=== PATIENT | female | born 1945 | race Caucasian/White ===

== ENCOUNTER 2018-08-03 02:49 | Outpatient (CLI) | payer MEDICARE, SELFPAY ==
[2018-08-03 11:36] LABS: ALT 26 U/L (12-78); AST 24 U/L (15-37); Albumin 3.8 g/dL (3.4-5.0); Alkaline Phosphatase 90 U/L (46-116); Anion Gap 10.9 mmol/L (3-11); BUN 17 mg/dL (7-18); Bilirubin, Total 0.5 mg/dL (0.2-1.0); CO2 27.1 mmol/L (21.0-32.0); CREATININE 0.79 mg/dL (0.55-1.02); Calcium 9.7 mg/dL (8.5-10.1); Chloride 104 mmol/L (98-107); Glucose 83 mg/dL (70-100); Potassium 3.8 mmol/L (3.5-5.1); Sodium 142 mmol/L (136-145); TSH (W/Ref FT4) 5.28 uIU/mL (0.358-3.74); Total Protein 6.7 g/dL (6.4-8.2)
[2018-08-03 12:02] LABS: FREE T4 0.97 ng/dL (0.76-1.46)
== END 2018-08-03 03:09 ==
DX: D64.9 Anemia, unspecified (principal); I10 Essential (primary) hypertension; R94.6 Abnormal results of thyroid function studies; F32.9 Major depressive disorder, single episode, unspecified
CPT/HCPCS: 36415; 80053; 84439; 84443

== ENCOUNTER 2019-05-12 14:45 | Emergency (ER) | payer MEDICARE, SELFPAY ==
[2019-05-12 14:51] VITALS: BP 161/78; PULSE 89; RESP 16; TEMP 36.3; O2SAT 98
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
--- NOTE | 2019-05-12 16:23 | DI.CT_ITS ---
SYMPTOM/DIAGNOSIS: TRAUMA NONCONTRAST HEAD CT: No priors. There is cerebral atrophy and small vessel ischemic disease consistent with the patient's age. No evidence of an acute intracranial hemorrhage, mass effect or midline shift is seen. The ventricles are intact. The basilar cisterns are patent. There is mild mucosal thickening in the left maxillary sinus. No fluid levels are seen. The mastoid air cells are well pneumatized. The calvarium is intact. IMPRESSION: No acute intracranial process. CERVICAL SPINE CT: Multiple contiguous axial images of the cervical spine were obtained. Sagittal and coronal reformatted images were evaluated on the Siemens work station. There are no priors for comparison. No acute fractures or subluxations are seen. There is minimal anterolisthesis of C 4 on C 5. This is likely degenerative. There are degenerative changes present throughout the cervical spine but no significant central spinal canal stenosis. The prevertebral soft tissues are unremarkable. IMPRESSION: No acute fracture or subluxation in the cervical spine.
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
== END 2019-05-12 17:20 | disposition home or self-care (01) ==
PROVIDERS: Emergency Provider Physician Assistant; PCP Nurse Practitioner Family
DX: M54.2 Cervicalgia (principal); V43.52XA Car driver injured in collision with other type car in traffic accident, initial encounter; I10 Essential (primary) hypertension
CPT/HCPCS: 99284; 70450; 72125; L0172

== ENCOUNTER 2019-09-23 02:19 | Outpatient (CLI) | payer MEDICARE, SELFPAY ==
--- NOTE | 2019-09-23 15:36 | DI.DEXA_ITS ---
EXAM: XR DEXA BONE DENSITY W/WO WILLIAM INDICATION: Postmenopausal state asymptomatic, Z78.0. COMPARISON: 2009 TECHNIQUE: 2D digital imaging was performed. FINDINGS: The WILLIAM image shows accentuation of the normal thoracic kyphosis. The vertebral bodies are not well profiled. No gross compression fractures are seen. A scoliosis is noted in the lumbar spine. The b one mineral density measurements of the lumbar spine correspond to a total T-score of -2.6, in the os teoporotic range. This represents a 10.5 percent decrease in bone density compared with 2009. The b one mineral density measurements of the left hip correspond to a total T-score of -2.2 and a femoral neck T-score of -2.8, in the osteoporotic range. This is a 17.8 percent decrease in total bone densi ty of the hip. The bone mineral density measurements of the left forearm correspond to a T-score of the distal third of -3.2, in the osteoporotic range. IMPRESSION: Osteoporosis of the lumbar spine, left hip and left forearm with significant decrease in bone density when compared with 2009.
== END 2019-09-23 02:39 ==
PROVIDERS: PCP Nurse Practitioner Family; Visit Provider Nurse Practitioner Family
DX: M81.0 Age-related osteoporosis without current pathological fracture (principal); Z78.0 Asymptomatic menopausal state
CPT/HCPCS: 77080

== ENCOUNTER 2019-10-01 02:22 | Outpatient (CLI) | payer MEDICARE, SELFPAY ==
[2019-10-01 11:46] LABS: HCT 36.4 % (36.0-46.0); HGB 11.5 g/dL (12.0-15.5); Mean Corp. HGB Concentration 31.6 g/dL (32.0-36.0); Mean Corpuscular Hemoglobin 29.1 pg (27.0-33.0); Mean Corpuscular Volume 92.2 fL (80-95); Mean Platelet Volume 12.9 fL (8.0-11.0); Platelet Count 210 x1000/uL (130-400); RBC 3.95 m/cumm (4.00-5.20); RBC Distribution Width 12.7 % (11.7-14.6)
[2019-10-01 12:08] LABS: Hemoglobin A1C 5.7 % (4.5-6.2)
[2019-10-01 12:26] LABS: ALT 21 U/L (14-59); AST 20 U/L (15-37); Albumin 3.7 g/dL (3.4-5.0); Alkaline Phosphatase 88 U/L (46-116); Anion Gap 10.4 mmol/L (3-11); CO2 26.6 mmol/L (21.0-32.0); CREATININE 0.89 mg/dL (0.55-1.02); Calcium 9.3 mg/dL (8.5-10.1); Calculated LDL 117 mg/dL; Chloride 105 mmol/L (98-107); Cholesterol 224 mg/dL (<200); Glucose 107 mg/dL (74-106); HDL Cholesterol 83 mg/dL (40-60); Potassium 3.8 mmol/L (3.5-5.1); Sodium 142 mmol/L (136-145); TSH 5.54 uIU/mL (0.36-3.74); Total Protein 6.5 g/dL (6.4-8.2); Triglyceride 120 mg/dL (<150)
[2019-10-01 12:58] LABS: BUN 20 mg/dL (7-18); Bilirubin, Total 0.4 mg/dL (0.2-1.0)
[2019-10-01 13:17] LABS: FREE T4 0.96 ng/dL (0.76-1.46)
[2019-10-02 12:05] LABS: Thyroglobulin Antibody <15.0 U/mL (<=60); Thyroperoxidase Antibody 97 U/mL (<=60)
[2019-10-03 05:34] LABS: Vitamin D 25 Total 31.9 ng/ml (30-100)
== END 2019-10-01 02:42 ==
PROVIDERS: PCP Nurse Practitioner Family; Visit Provider Nurse Practitioner Family
DX: I10 Essential (primary) hypertension (principal); D64.9 Anemia, unspecified; E03.9 Hypothyroidism, unspecified; R73.09 Other abnormal glucose; M85.80 Other specified disorders of bone density and structure, unspecified site
CPT/HCPCS: 36415; 80053; 80061; 82306; 85027; 86376; 83036; 84439; 84443

== ENCOUNTER 2019-10-08 01:10 | Outpatient (CLI) | payer MEDICARE, SELFPAY ==
--- NOTE | 2019-10-08 12:02 | DI.MAMMO_ITS ---
EXAM: MAMMO SCREENING CLINICAL HISTORY: screening, Z12.39. TECHNIQUE: Full field digital CC and MLO mammographic images were obtained with 3D tomosynthesis and utilizing computer aided detection (CAD). COMPARISON: . 2009 to 2016. FINDINGS: Breast density: Breast Density - Category B - Scattered areas of fibroglandular density Masses/Architectural Distortion: None seen. Microcalcifications: No suspicious pleomorphic-type calcifications are seen. Skin Thickening/Nipple Retraction: None. Axilla: Unremarkable. The previously noted bilateral subpectoral breast implants have been removed. IMPRESSION: 1. BI-RADS category 1, negative. No significant interval change with no specific features of maligna ncy noted. 2. Unless there is more urgent need, screening mammography is recommended, as per [employer] guidelines. BI-RADS Cat 1 - Negative Breast Density - Category B - Scattered areas of fibroglandular density A negative radiographic report should not delay biopsy if a dominant or clinically suspicious mass is present. Up to ten percent of cancers are not identified on mammography. A negative report may reinforce clinical impression. Adenosis and dense breasts may obscure an underlying neoplasm. False positive reports average 6 to 10%. Patient will receive a letter notifying them of these results.
== END 2019-10-08 01:30 ==
PROVIDERS: PCP Nurse Practitioner Family; Visit Provider Nurse Practitioner Family
DX: Z12.31 Encounter for screening mammogram for malignant neoplasm of breast (principal)
CPT/HCPCS: 77063; 77067

== ENCOUNTER 2020-08-20 15:49 | Outpatient (REF) | payer MEDICARE, SELFPAY ==
[2020-08-20 20:45] LABS: Anion Gap 8.8 mmol/L (3-11); BUN 21 mg/dL (7-18); CO2 26.2 mmol/L (21.0-32.0); CREATININE 0.73 mg/dL (0.55-1.02); Calcium 9.4 mg/dL (8.5-10.1); Chloride 104 mmol/L (98-107); FREE T4 1.01 ng/dL (0.76-1.46); Glucose 91 mg/dL (74-106); Potassium 3.7 mmol/L (3.5-5.1); Sodium 139 mmol/L (136-145); TSH 4.13 uIU/mL (0.36-3.74)
[2020-08-20 20:47] LABS: Hemoglobin A1C 5.2 % (<5.7)
== END 2020-08-20 16:09 ==
LOC: LBN 15:49
PROVIDERS: PCP Nurse Practitioner Family; Visit Provider Nurse Practitioner Family
DX: E03.9 Hypothyroidism, unspecified (principal); R73.03 Prediabetes; I10 Essential (primary) hypertension
CPT/HCPCS: 80048; 83036; 84439; 84443

== ENCOUNTER 2020-09-02 01:34 | Outpatient (RCR) | payer MEDICARE, SELFPAY ==
[2020-09-02] MEDS: Normal Saline Flush 10 ML SYR IVP (14:01)
== END 2020-09-28 23:59 | disposition home or self-care (01) ==
LOC: INF 01:34
PROVIDERS: PCP Nurse Practitioner Family; Visit Provider Family Medicine
DX: M81.0 Age-related osteoporosis without current pathological fracture (principal)
CPT/HCPCS: 96365; J3489

== ENCOUNTER 2020-10-09 02:13 | Outpatient (CLI) | payer MEDICARE, SELFPAY ==
--- NOTE | 2020-10-09 10:00 | DI.MAMMO_ITS ---
EXAM: MAMMO SCREENING CLINICAL HISTORY: screening,Z12.39 TECHNIQUE: Mammograms were interpreted according to the usual protocol including computer analysis w [employer] CAD system, tomosynthesis and C-view imaging. COMPARISON: 2010 through 2018 FINDINGS: The breasts are composed of scattered fibroglandular densities, Breast Density category B. No suspicious masses or suspicious microcalcifications are seen. There is a stable small benign-appe aring nodule in the subareolar region of the left breast. Vascular calcifications are incidentally n oted. No skin thickening or abnormal axillary lymph nodes are seen. There has been no significant change from prior exams. IMPRESSION: BI-RADS Category 2 - Benign Findings Yearly screening mammography is recommended. Breast Density - Category B, scattered fibroglandular densities. A negative radiographic report should not delay biopsy if a dominant or clinically suspicious mass is present. Up to ten percent of cancers are not identified on mammography. A negative report may reinforce clinical impression. Adenosis and dense breasts may obscure an underlying neoplasm. False positive reports average 6 to 10%. Patient will receive a letter notifying them of these results.
== END 2020-10-09 02:33 ==
PROVIDERS: PCP Nurse Practitioner Family; Visit Provider Nurse Practitioner Family
DX: Z12.31 Encounter for screening mammogram for malignant neoplasm of breast (principal); R92.1 Mammographic calcification found on diagnostic imaging of breast
CPT/HCPCS: 77063; 77067

== ENCOUNTER 2021-08-24 01:42 | Outpatient (CLI) | payer MEDICARE, OTHER, SELFPAY ==
[2021-08-24 12:44] LABS: Anion Gap 9.6 mmol/L (3-11); BUN 16 mg/dL (7-18); CO2 28.4 mmol/L (21.0-32.0); CREATININE 0.9 mg/dL (0.55-1.02); Calcium 9.2 mg/dL (8.5-10.1); Calculated LDL 125 mg/dL (<100); Chloride 104 mmol/L (98-107); Cholesterol 235 mg/dL (<200); Glucose 83 mg/dL (74-106); HDL Cholesterol 88 mg/dL (40-60); Potassium 3.7 mmol/L (3.5-5.1); Sodium 142 mmol/L (136-145); Triglyceride 113 mg/dL (<150)
== END 2021-08-24 01:43 | disposition home or self-care (01) ==
PROVIDERS: PCP Nurse Practitioner Family; Visit Provider Nurse Practitioner Family
DX: E78.5 Hyperlipidemia, unspecified (principal); I10 Essential (primary) hypertension
CPT/HCPCS: 36415; 80048; 80061

== ENCOUNTER 2021-09-08 01:18 | Outpatient (RCR) | payer MEDICARE, OTHER, SELFPAY ==
[2021-09-08] MEDS: Normal Saline Flush 10 ML SYR IVP (13:55)
== END 2021-09-28 23:59 | disposition home or self-care (01) ==
LOC: INF 01:18
PROVIDERS: PCP Nurse Practitioner Family; Visit Provider Family Medicine
DX: M81.0 Age-related osteoporosis without current pathological fracture (principal)
CPT/HCPCS: 96365; J3489

== ENCOUNTER 2021-09-17 15:07 | Outpatient (REF) | payer MEDICARE, SELFPAY ==
[2021-09-19 21:00] LABS: COVID-19 RT-PCR UVMMC Result Positive (Negative)
== END 2021-09-17 15:08 | disposition home or self-care (01) ==
LOC: LBN 15:07
PROVIDERS: PCP Nurse Practitioner Family; Visit Provider Family Medicine
DX: Z20.822 Contact with and (suspected) exposure to COVID-19 (principal)
CPT/HCPCS: U0003

== ENCOUNTER 2021-11-25 02:39 | Outpatient (CLI) | payer MEDICARE, SELFPAY ==
--- NOTE | 2021-11-25 08:15 | DI.MAMMO_ITS ---
Exam(s) MAMMO SCREENING EXAM: MAMMO SCREENING CLINICAL HISTORY: screening,Z12.39 TECHNIQUE: Bilateral full field digital CC and MLO mammographic images were obtained with 3D tomosyn thesis and utilizing computer aided detection (CAD). COMPARISON: Available for comparison. FINDINGS: Masses/Architectural Distortion: None seen. There is a stable subareolar nodule in the left breast. Microcalcifications: No suspicious pleomorphic-type are seen. Skin Thickening/Nipple Retraction: None. IMPRESSION: 1. No significant interval change with no specific features of malignancy noted. 2. Unless there is more urgent need, screening mammography is recommended, as per [employer] guidelines. BI-RADS Category 2 - Benign Findings Breast Density - Category B - Scattered areas of fibroglandular density Breast density category C or D implies that the patient has dense breast tissue. Dense breast tissue is very common and is not abnormal but dense breast tissue can make it harder to find cancer on a ma mmogram. Also, dense breast tissue may increase their breast cancer risk. This information about the result of the mammogram report was provided to the patient to raise their awareness. Use this report when you speak with the patient about their risks for breast cancer, which includes their family hist ory. At that time, you may recommend for more screening tests (Ultrasound or MRI) as they might be us eful based on their risk. A negative radiographic report should not delay biopsy if a dominant or clinically suspicious mass is present. Up to ten percent of cancers are not identified on mammography. A negative report may reinforce clinical impression. Adenosis and dense breasts may obscure an underlying neoplasm. False positive reports average 6 to 10%. Patient will receive a letter notifying them of these results.
--- NOTE | 2021-11-25 08:15 | DI.DEXA_ITS ---
Exam(s) XR DEXA BONE DENSITY W/WO WILLIAM EXAM: XR DEXA BONE DENSITY W/WO WILLIAM CLINICAL HISTORY: Osteoporosis SCREENING IN POSTMENOPAUSAL WOMAN,Z78.0, last dexa 2018, TECHNIQUE: COMPARISON: CR XR DEXA BONE DENSITY W/WO WILLIAM from 09/23/2019 FINDINGS: Lateral Spine Image: Unremarkable. No compression deformities identified. Left hip: Total T-Score: -2.0. This compares to -2.2 on the prior examination. There is a T-score of -2.9 in t he left femoral neck. Total Z-Score: -0.2 T- and Z-scores: Findings of osteoporosis in the left femoral neck. Lumbar Spine: Total T-Score: -2.0. This compares to -2.6 on the prior examination. Total Z-Score: 0.5 T- and Z-scores: Findings consistent with osteopenia. IMPRESSION: Osteoporosis in the left femoral neck.
== END 2021-11-25 02:59 ==
PROVIDERS: PCP Nurse Practitioner Family; Visit Provider Nurse Practitioner Family
DX: Z12.31 Encounter for screening mammogram for malignant neoplasm of breast (principal); M81.0 Age-related osteoporosis without current pathological fracture; M85.88 Other specified disorders of bone density and structure, other site; Z78.0 Asymptomatic menopausal state
CPT/HCPCS: 77063; 77067; 77080

== ENCOUNTER 2022-08-30 03:56 | Outpatient (CLI) | payer MEDICARE, OTHER, SELFPAY ==
[2022-08-30 12:25] LABS: HCT 36.4 % (36.0-46.0); HGB 11.8 g/dL (11.2-15.7); MCH 29.9 pg (27.0-33.0); MCHC 32.4 % (32.0-36.0); MCV 92 fL (80-95); MPV 13.7 fL (8.0-11.0); Platelet Count 179 10^3/uL (130-400); RBC 3.95 10^6/uL (3.93-5.22); RDW 12.6 % (11.7-14.6); RDW-SD 42.6 fL; WBC 6.17 10^3/uL (4.4-10.8)
[2022-08-30 12:45] LABS: Anion Gap 5.6 mmol/L (3-11); BUN 17 mg/dL (7-18); CO2 29.4 mmol/L (21.0-32.0); CREATININE 0.9 mg/dL (0.55-1.02); Calcium 9.5 mg/dL (8.5-10.1); Chloride 106 mmol/L (98-107); Estimated GFR 66.26 (mL/min/1.73m2); FREE T4 1.08 ng/dL (0.76-1.46); Glucose 84 mg/dL (74-106); Potassium 3.8 mmol/L (3.5-5.1); Sodium 141 mmol/L (136-145); TSH 4.77 uIU/mL (0.36-3.74)
== END 2022-08-30 03:57 | disposition home or self-care (01) ==
LOC: LOS 03:56
PROVIDERS: PCP Nurse Practitioner Family; Visit Provider Nurse Practitioner Family
DX: E03.9 Hypothyroidism, unspecified (principal); I10 Essential (primary) hypertension; D64.9 Anemia, unspecified
CPT/HCPCS: 36415; 80048; 85027; 84439; 84443

== ENCOUNTER 2022-09-09 00:55 | Outpatient (RCR) | payer MEDICARE, SELFPAY ==
[2022-09-09] MEDS: ZOLEDRONIC ACID/MANNITOL/WATER 5 MG/100 ML BTL 300 MG IVPB (14:01)
[2022-09-09] MEDS: Normal Saline Flush 10 ML SYR IVP (14:06)
== END 2022-09-28 23:59 | disposition home or self-care (01) ==
LOC: INF 00:55
PROVIDERS: PCP Nurse Practitioner Family; Visit Provider Family Medicine
DX: M81.0 Age-related osteoporosis without current pathological fracture (principal)
CPT/HCPCS: 96365; J3489

== ENCOUNTER 2022-11-28 02:20 | Outpatient (CLI) | payer MEDICARE, SELFPAY ==
--- NOTE | 2022-11-28 09:00 | DI.MAMMO_ITS ---
Exam(s) MAMMO SCREENING EXAM: MAMMO SCREENING CLINICAL HISTORY: screening,z12.39 TECHNIQUE: Bilateral full field digital CC and MLO mammographic images were obtained with 3D tomosyn thesis and utilizing computer aided detection (CAD). COMPARISON: Available for comparison. FINDINGS: Masses/Architectural Distortion: The retroareolar nodule in the left breast appears stable. No suspi cious nodules or areas of architectural distortion are seen. Microcalcifications: No suspicious pleomorphic-type are seen. Skin Thickening/Nipple Retraction: Note is again made of a skin lesion on the lower inner breast. IMPRESSION: 1. No significant interval change with no specific features of malignancy noted. 2. Unless there is more urgent need, screening mammography is recommended, as per [employer] guidelines. BI-RADS Category 1 - Negative Breast Density - Category B - Scattered areas of fibroglandular density Breast density category C or D implies that the patient has dense breast tissue. Dense breast tissue is very common and is not abnormal but dense breast tissue can make it harder to find cancer on a ma mmogram. Also, dense breast tissue may increase their breast cancer risk. This information about the result of the mammogram report was provided to the patient to raise their awareness. Use this report when you speak with the patient about their risks for breast cancer, which includes their family hist ory. At that time, you may recommend for more screening tests (Ultrasound or MRI) as they might be us eful based on their risk. A negative radiographic report should not delay biopsy if a dominant or clinically suspicious mass is present. Up to ten percent of cancers are not identified on mammography. A negative report may reinforce clinical impression. Adenosis and dense breasts may obscure an underlying neoplasm. False positive reports average 6 to 10%. Patient will receive a letter notifying them of these results.
== END 2022-11-28 02:40 ==
LOC: DI 02:20
PROVIDERS: PCP Nurse Practitioner Family; Visit Provider Nurse Practitioner Family
DX: Z12.31 Encounter for screening mammogram for malignant neoplasm of breast (principal); N60.82 Other benign mammary dysplasias of left breast
CPT/HCPCS: 77063; 77067

== ENCOUNTER → 2023-08-29 02:15 | Outpatient (CLI) | payer MEDICARE, SELFPAY ==
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
== END ==
PROVIDERS: PCP Nurse Practitioner Family; Visit Provider Nurse Practitioner Family
DX: M16.0 Bilateral primary osteoarthritis of hip (principal)
CPT/HCPCS: 36415; 80048; 86803; 73502; 84439; 84443

== ENCOUNTER 2023-08-29 03:15 | Outpatient (CLI) | payer MEDICARE, SELFPAY ==
[2023-08-29 12:39] LABS: Anion Gap 10.5 mmol/L (3-11); BUN 18 mg/dL (7-18); CO2 26.5 mmol/L (21.0-32.0); CREATININE 0.9 mg/dL (0.55-1.02); Calcium 9.5 mg/dL (8.5-10.1); Chloride 104 mmol/L (98-107); Estimated GFR 65.84 (mL/min/1.73m2); Glucose 127 mg/dL (74-106); Potassium 3.5 mmol/L (3.5-5.1); Sodium 141 mmol/L (136-145); TSH (W/Ref FT4) 3.86 uIU/mL (0.36-3.74)
[2023-08-29 13:00] LABS: FREE T4 1.05 ng/dL (0.76-1.46)
[2023-08-30 10:18] LABS: Hepatitis C Ab w Rflx HCV PCR Negative (Negative)
== END 2023-08-29 03:16 | disposition home or self-care (01) ==
PROVIDERS: PCP Nurse Practitioner Family; Visit Provider Nurse Practitioner Family
DX: Z00.00 Encounter for general adult medical examination without abnormal findings (principal); E03.8 Other specified hypothyroidism
CPT/HCPCS: 36415; 80048; 86803; 84439; 84443

== ENCOUNTER 2023-10-06 01:01 | Outpatient (RCR) | payer MEDICARE, SELFPAY ==
[2023-10-06] MEDS: ZOLEDRONIC ACID/MANNITOL/WATER 5 MG/100 ML BTL 300 MG IVPB (10:03)
[2023-10-06] MEDS: Normal Saline Flush 10 ML SYR IVP (10:04)
== END 2023-10-29 23:59 | disposition home or self-care (01) ==
LOC: INF 01:01
PROVIDERS: PCP Nurse Practitioner Family; Visit Provider Nurse Practitioner Family
DX: M81.0 Age-related osteoporosis without current pathological fracture (principal)
CPT/HCPCS: 96365; J3489

== ENCOUNTER → 2023-12-07 01:43 | Outpatient (CLI) | payer MEDICARE, SELFPAY ==
--- NOTE | 2023-12-07 05:44 | DI.DEXA_ITS ---
Exam(s) XR DEXA BONE DENSITY W/WO WILLIAM EXAM: XR DEXA BONE DENSITY W/WO WILLIAM CLINICAL HISTORY: SCREENING FOR OSTEOPOROSIS IN POSTMENOPAUSAL WOMAN,Z78.0 TECHNIQUE: Routine DEXA evaluation of the lumbar spine, hip, or forearm. COMPARISON: CR XR DEXA BONE DENSITY W/WO WILLIAM from 11/25/2021 FINDINGS: Performed on a HoloSymform unit. Lateral image: No compression fracture evident. Lumbar Spine total T-score: -2.1 Hip total T-score:-1.7 Independent reading at the level of the femoral neck yields T-score of -2.8 Forearm total T-score: -3.7 IMPRESSION: Bone mineral density measures in the osteoporosis range. Fracture risk is high. Note: Any spine fracture indicates 5x risk for subsequent spine fracture and 2x risk for subsequent h ip fracture. World Health Organization criteria for BMD interpretation classify patients: Normal...... T- Score at or above -1.0 Osteopenic... T- Score between -1.0 and -2.5 Osteoporosis... T-Score at or below -2.5
--- NOTE | 2023-12-07 15:04 | DI.MAMMO_ITS ---
Exam(s) MAMMO SCREENING EXAM: MAMMO SCREENING CLINICAL HISTORY: screening,Z12.39 TECHNIQUE: Mammograms were interpreted according to the usual protocol including computer analysis w [employer] CAD system, tomosynthesis and C-view imaging. COMPARISON: 2013 through 2022 FINDINGS: The breasts are composed of scattered fibroglandular densities, Breast Density category B. No suspicious masses or suspicious microcalcifications are seen. Stable area of nodularity in the george bareolar region of the left breast. No skin thickening or abnormal axillary lymph nodes are seen. There has been no significant change from prior exams. IMPRESSION: BI-RADS Category 1, Negative mammogram Yearly screening mammography is recommended. Breast Density - Category B, scattered fibroglandular densities. A negative radiographic report should not delay biopsy if a dominant or clinically suspicious mass is present. Up to ten percent of cancers are not identified on mammography. A negative report may reinforce clinical impression. Adenosis and dense breasts may obscure an underlying neoplasm. False positive reports average 6 to 10%. Patient will receive a letter notifying them of these results.
== END ==
PROVIDERS: PCP Nurse Practitioner Family; Visit Provider Nurse Practitioner Family
DX: Z12.31 Encounter for screening mammogram for malignant neoplasm of breast (principal); R92.8 Other abnormal and inconclusive findings on diagnostic imaging of breast; Z13.820 Encounter for screening for osteoporosis; M81.0 Age-related osteoporosis without current pathological fracture
CPT/HCPCS: 77063; 77067; 77080

== ENCOUNTER 2024-03-03 19:48 | Emergency (ER) | payer MEDICARE, SELFPAY ==
[2024-03-03 19:51] VITALS: BP 175/55; PULSE 84; RESP 16; TEMP 37.2; O2SAT 99
--- NOTE | 2024-03-03 20:25 | W.ED.GENAD ---
Discharge Plan Disposition Patient Disposition: Home Condition: Good Discharge Details Clinical Impression: Acute anterior epistaxis Primary Care Provider: Saritha Michaels ED Provider: Steven Mast Home Meds and New Rx's Prescriptions: No Action Centrum Silver Women 8 mg iron-400 mcg-300 mcg tablet 1 tab PO DAILY lysine 500 MG tablet 1 tab PO DAILY aspirin 81 MG tablet,chewable 81 mg PO DAILY losartan-hydrochlorothiazide [Hyzaar] 50-12.5 mg tablet 1 tab PO DAILY Qty: 90 3RF Discharge Instructions Instructions: Nosebleed (ED) Additional Instructions: Please hold your aspirin until you follow-up with ENT. Please follow-up with ENT in the next 3 to 5 days to have the nasal device removed. If you notice any worsening of your symptoms, or any new symptoms such as vomiting, diarrhea, fever, chills, shortness of breath, chest pain, numbness, weakness, or fainting , please return immediately to the emergency department for reevaluation. Please follow up with your primary care provider as soon as possible for reassessment and reevaluation. As always, it was a pleasure participating in your medical care today. Referrals: Saritha Michaels NP [Primary Care Provider] - Joce Sanches MD [ [facility]FF [facility]YSICIAN] - Discharge Data Discharge Date/Time-TO BE ENTERED AT DEPARTURE: 03/03/24 20:38 HPI General Date/Time Provider Initiated Documentation: 03/03/24 19:57. HPI Narrative: 78-year-old female with a past medical history of aspirin use for general preventative care, presents today for evaluation of left nosebleed. Patient states that it started about 2 hours ago, and has not stopped since even with pressure. She denies digital exploration, trauma, or other inciting event. She denies any pain. No other complaints at this time. Related Data Home Medications Medication Instructions Recorded Confirmed lysine 500 mg tablet 1 tab PO DAILY 01/09/13 03/03/24 aspirin 81 mg chewable tablet 81 mg PO DAILY 07/31/17 03/03/24 [id number]-[id number]-dnib 8 mg-folic 400 1 tab PO DAILY 08/25/22 03/03/24 mcg-K 50 mcg-lutein 300 mcg tablet (Centrum Silver Women) losartan 50 mg-hydrochlorothiazide 1 tab PO DAILY #90 tab-caps 06/21/23 03/03/24 12.5 mg tablet (Hyzaar) Previous Rx's Medication Instructions Recorded losartan 50 mg-hydrochlorothiazide 1 tab PO DAILY #90 tab-caps 06/21/23 12.5 mg tablet (Hyzaar) Allergies Allergy/AdvReac Type Severity Reaction Status Date / Time doxycycline Allergy Unknown Verified 08/28/23 09:42 oxycodone Allergy Unknown ITCHY RASH Verified 08/28/23 09:42 tetracycline Allergy Unknown Verified 08/28/23 09:42 lisinopril AdvReac Mild cough Verified 08/28/23 09:42 General Stated Complaint: Epistaxis CHARLEE: 4 Review of Systems All systems reviewed & are unremarkable except as noted in HPI and below Exam Narrative Exam Narrative: 1.Const: Well-nourished, Well-developed, appearing stated age 2.Eyes: PERRL, no conjunctival injection, and symmetrical lids. Active bleeding coming from the left nare. Blood appears to be anteriorly located. No blood in his posterior oropharynx. 3.ENT: Atraumatic external nose and ears. Moist MM. Neck: Symmetric, trachea midline, No thyromegaly. 4.CVS: +S1/S2, No murmurs or gallops. Peripheral pulses 2+ and equal in all extremities. Brisk capillary refill in all extremities. 5.RESP: Unlabored respiratory effort. Clear to auscultation bilaterally. No wheezes rales or rhonchi 6.GI: Soft, Nontender/Nondistended, No hepatosplenomegaly. No guarding or rebound. 7.MSK: Normocephalic/Atraumatic, Extremities w/o deformity or ttp No cyanosis or clubbing, Normal movement of all extremities 8.Skin: Warm, Dry. No rashes or lesions. 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 Sensation grossly intact, no focal neurologic deficits. 10.Psych: (AAO) x3. Appropriate mood and affect Course Vital Signs Vital signs: Vital Signs Temperature 37.2 C 03/03/24 19:51 Pulse 84 03/03/24 19:51 Respiratory Rate 16 03/03/24 19:51 Blood Pressure 175/55 H 03/03/24 19:51 Pulse Oximetry 99 03/03/24 19:51 Temperature 37.2 C 05/05/24 19:51 Temperature Source Temporal Artery Scan 03/03/24 19:51 Pulse 84 03/03/24 19:51 Respiratory Rate 16 03/03/24 19:51 Blood Pressure 175/55 H 03/03/24 19:51 Blood Pressure Position Sitting 03/03/24 19:51 Pulse Oximetry 99 03/03/24 19:51 Oxygen Delivery Method Room Air 03/03/24 19:51 Oxygen Flow Rate 0 03/03/24 19:51 Pain Level 0 03/03/24 19:51 Procedures Epistaxis Control Time Out Performed: Yes Nostril: left Nose Prepped With: lidocaine Direct Inspection: yes Clots Removed by: blowing nose Cautery Used: none Device Inserted: other (Rhino Rocket 4.5 ) Device Size: 4 Patient Tolerated Procedure: well and no complications Medical Decision Making 78-year-old female with a past medical history of aspirin use for general preventative care, presents today for evaluation of left nosebleed. Patient states that it started about 2 hours ago, and has not stopped since even with pressure. She denies digital exploration, trauma, or other inciting event. She denies any pain. No other complaints at this time. Exam demonstrates well-appearing female, vital signs stable, blood coming from the anterior nose. I gave the patient the option of continued pressure versus Rhino Rocket, patient has elected for definitive management. Rhino Rocket was placed in the left nare, she tolerated this well. No complications. No bleeding after this. Will place referral for outpatient ENT follow-up for Rhino Rocket removal. I have extensively reviewed the treatment plan and discharge instructions with the patient and their family. I have addressed all patient concerns at this time. The patient and family was made aware of what symptoms to monitor for that would warrant a return to the emergency department. Discussed the plan with the patient and family, they demonstrate verbal understanding and agreement with our assessment and plan at this time. The documentation in this chart was dictated using [employer] dictation software. Please excuse any dictation errors. Quality:SDOH Health Related Social Needs: No Data to Display PFSH All Active Problems Acute anterior epistaxis (Acute) Osteoporosis (Chronic) Dexa 09/17. Bisphosphonates started 10/17 Hyperlipidemia (Chronic) Essential hypertension (Chronic) Subclinical hypothyroidism (Chronic) Medical History Anemia COVID-19 (~08/2021) 08/2021-mild episodes-patient vaccinated. 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 Basal cell carcinoma of dorsum of nose Treated by [facility] 06/10/19 Depressive disorder Surgical History S/P tonsillectomy History of back surgery (04/02/13) Right L5/S1 laminotomy and nerve root decompression, Right L3/L4, L4/L5 destruction via thermal ablation of paravertebral facet joints. Performed by Dr. Jim Mcaky with the [facility] in [place] History of removal of implants of both breasts (08/31/17) And capsulotomy History of augmentation of both breasts (1986) S/P total abdominal hysterectomy and bilateral salpingo-oophorectomy (~1997) Family History Mother , at 90 Hypertension Stroke Hyperlipidemia Alcohol abuse Father No problems noted. Sister Depression Hypertension Osteoporosis Daughter No problems noted. Son No problems noted. Maternal Grandfather Brain cancer Maternal Grandmother Hypertension Stroke Paternal Grandfather No problems noted. Paternal Grandmother No problems noted. Social History Smoking/Tobacco Use Status: Never Second Hand Exposure: Yes Smoking risk assessment performed?: Yes Alcohol Intake: never Drug use: Never Substance use type: does not use Adopted: No Caregiver/Support person: No Foster care: No Household members: spouse Housing: house Number of Children: 2 number of grandchildren: 3 Communication Needs: None Education Level: high school Do you need help understanding health information?: Never current occupation: Home Pets and animals: No Sexually active: No Do you think of yourself as: straight/heterosexual Current gender identity: female What is your relationship status?: How often do you talk on the phone with friends or family?: three or more times per week How often do you get together with friends or relatives?: three or more times per week How often do you attend shinto or yarsanism services?: 4 or more times per year Do you belong to any clubs or organized social groups?: no Panel score (0-1 are the most socially isolated patients): 3 What type of physical activity do you participate in: walking Duration: 30-45 minutes/day Frequency: 3-4 times per week Melonie/Congregational: Congregation Special melonie needs: No Seatbelt use: always Helmet use: No Drive intox or ride w/intox 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
--- NOTE | 2024-03-03 20:34 | NUR.NOTE ---
Referral scan e-mailed to [facility] for 5 day f/u for rhino rocket removal.Nursing Note:
[2024-03-03] MEDS: Lidocaine/Epinephri/Tetracaine Topical Gel 3 ML (20:38)
== END 2024-03-03 20:38 | disposition home or self-care (01) ==
LOC: ER 20:41
PROVIDERS: Emergency Provider Student in an Organized Health Care Education/Training Program; PCP Nurse Practitioner Family
DX: R04.0 Epistaxis (principal); Z79.82 Long term (current) use of aspirin
CPT/HCPCS: 30901; 99283

== ENCOUNTER 2024-09-09 03:21 | Outpatient (CLI) | payer MEDICARE, SELFPAY ==
[2024-09-09 12:56] LABS: ALT 26 U/L (14-59); AST 24 U/L (15-37); Albumin 3.7 g/dL (3.4-5.0); Alkaline Phosphatase 103 U/L (46-116); Anion Gap 9.8 mmol/L (3-11); BUN 14 mg/dL (7-18); Bilirubin, Total 0.38 mg/dL (0.2-1.0); CO2 28.2 mmol/L (21.0-32.0); CREATININE 0.8 mg/dL (0.55-1.02); Calcium 9.7 mg/dL (8.5-10.1); Calculated LDL 99 mg/dL (<100); Chloride 105 mmol/L (98-107); Cholesterol 209 mg/dL (<200); Estimated GFR 75.37 (mL/min/1.73m2); Glucose 85 mg/dL (74-106); HDL Cholesterol 90 mg/dL (40-60); Potassium 3.8 mmol/L (3.5-5.1); Sodium 143 mmol/L (136-145); TSH (W/Ref FT4) 3.16 uIU/mL (0.36-3.74); Total Protein 6.7 g/dL (6.4-8.2); Triglyceride 104 mg/dL (<150); Vitamin D 25 Total 38.5 ng/mL (30-100)
[2024-09-09 20:03] LABS: HIV-1/2 Ag & Ab Screen Negative (Negative)
[2024-09-09 21:22] LABS: Hep B Surface Ab Positive (See Note); Hepatitis B Core Antibody Negative (Negative); Hepatitis B Surface Antigen Negative (Negative)
== END 2024-09-09 03:22 | disposition home or self-care (01) ==
LOC: LOS 03:22
PROVIDERS: PCP Nurse Practitioner Family; Visit Provider Nurse Practitioner Family
DX: I10 Essential (primary) hypertension (principal); E78.5 Hyperlipidemia, unspecified; M81.0 Age-related osteoporosis without current pathological fracture; Z00.00 Encounter for general adult medical examination without abnormal findings; Z11.4 Encounter for screening for human immunodeficiency virus [HIV]; E03.9 Hypothyroidism, unspecified; Z11.59 Encounter for screening for other viral diseases
CPT/HCPCS: 36415; 80053; 80061; 82306; 86704; 86706; 87340; 87389; 84443

== ENCOUNTER 2024-10-18 00:22 | Outpatient (CLI) | payer MEDICARE, SELFPAY ==
--- NOTE | 2024-10-18 08:00 | DI.CT_ITS ---
Exam(s) CT SINUS WO EXAM: CT SINUS WO CLINICAL HISTORY: left-sided nasal polyp,NASAL CONGESTION,R09.81,J33.9. TECHNIQUE: Imaging Protocol: Axial computed tomography images with coronal and sagittal reformatted images were created and reviewed. No IV Contrast COMPARISON: CT CT HEAD CERVICAL SPINE WO from 05/12/2019 FINDINGS: MAXILLARY SINUSES: There has been significant progression of unilateral left maxillary sinus disease when compared to . There is now complete opacification of the left maxillary sinus and ipsilateral ostiomeatal unit with extension of lobulated disease through the dehisced medial wall and into the left nasal cavity exten ding to the level of the nasal septum. There is also dehiscence of the antro lateral wall of the lef t maxillary sinus and also some thinning of the roof as well as some periosteal thickening in the sup erolateral aspect of the left maxillary sinus. Medially this mass extends to the level the middle te rminate and is indistinguishable from the middle turbinates. The opposite-right maxillary sinus appears unremarkable. ETHMOIDAL AIR CELLS: There is mild involvement of the lower most left-sided ethmoidal air cells. Rig ht-sided ethmoidal air cells are unremarkable. SPHENOID SINUSES: There is inspissated mucus in the right sphenoid sinus. The dominant left sphenoid sinus compartment is unremarkable. FRONTAL SINUSES: Well aerated. No mucosal thickening nor fluid levels. NASAL SEPTUM AND TURBINATES:Nasal septum is midline with no evidence of significant nasal septal spur . There is no lytic destruction of the nasal septum. No evidence of elie bullosa. IMPRESSION: 1. Compared to prior images of 2019 there has been significant progression of unilateral left-sided maxillary sinus disease which is now completely opacified by a relatively uniform masslike structure the extension through the medial wall into the nasal cavity, reaching the midline septum. There is a lso an element of dehiscence in the inferolateral wall of the left maxillary sinus, although the mass like density within the sinus does not appear to be extending beyond the confines of the sinus at thi s level. First consideration is to rule out neoplasm given the fact that the above finding is completely unila teral, which would be unlikely for polyposis. 2. ENT consultation recommended. RADIATION DOSE DELIVERED: 94.48mGy.cm Total DLP DATA REPOSITORY: All CT scans at this facility are submitted to the National Radiology Data Registry (NRDR) Dose Index Registry (DIR) with the [employer] (ACR). RADIATION OPTIMIZATION: All CT scans at this facility use at least one of these dose optimization te chniques: automated exposure control; mA and/or kV adjustment per patient size (includes targeted exa ms where dose is matched to clinical indication); or iterative reconstruction.
== END 2024-10-18 00:42 ==
PROVIDERS: PCP Nurse Practitioner Family; Visit Provider Registered Nurse Maternal Newborn
DX: R09.81 Nasal congestion
CPT/HCPCS: 70486

== ENCOUNTER 2024-12-09 02:07 | Outpatient (CLI) | payer MEDICARE, SELFPAY ==
--- NOTE | 2024-12-09 06:42 | DI.MAMMO_ITS ---
Exam(s) MAMMO SCREENING EXAM: MAMMO SCREENING CLINICAL HISTORY: screening,z12.39. TECHNIQUE: Bilateral full field digital CC and MLO mammographic images were obtained with 3D tomosyn thesis and utilizing computer aided detection (CAD). COMPARISON: Prior mammograms were reviewed. FINDINGS: In the right breast on CC view there is an asymmetric density-possible nodule located 6 cm in from th e nipple on the CC view, slightly lateral of center measuring 6 x 5 mm. Further imaging recommended. A benign-appearing nodular density anteriorly in the retroareolar region of the left breast is unchan ged from at least 2015 and therefore benign. There are no new malignant-appearing microcalcification groups in either breast. There is no significant architectural distortion nor skin thickening-retraction. IMPRESSION: 1. No radiographic evidence of malignancy in left breast. 2. Asymmetric density-possible nodule posteriorly in the right breast on the CC view. Spot compressi on CC view and ultrasound recommended. BI-RADS Category 0 - Incomplete: Need additional imaging evaluation Breast Density - Category B - Scattered areas of fibroglandular density Breast density Category C or D implies that the patient has dense breast tissue. Dense breast tissue can make it harder to find cancer on a mammogram. Dense breast tissue is also associated with an incr eased risk of breast cancer. This information about the result of the mammogram report was provided to the patient to raise their awareness. Use this report when you speak with the patient about their risks for breast cancer, which includes their family history. At that time, you may recommend additional screening tests (Ultrasoun d or MRI) as these tests may add significant information. A negative radiographic report should not delay biopsy if a dominant or clinically suspicious mass is present. Up to ten percent of cancers are not identified on mammography. A negative report may reinforce clinical impression. Adenosis and dense breasts may obscure an underlying neoplasm. False positive reports average 6 to 10%. Patient will receive a letter notifying them of these results.
== END 2024-12-09 02:27 ==
LOC: DI 02:07
PROVIDERS: PCP Nurse Practitioner Family; Visit Provider Nurse Practitioner Family
DX: Z12.31 Encounter for screening mammogram for malignant neoplasm of breast (principal); R92.323 Mammographic fibroglandular density, bilateral breasts
CPT/HCPCS: 77063; 77067

== ENCOUNTER 2024-12-11 02:39 | Outpatient (CLI) | payer MEDICARE, SELFPAY ==
--- NOTE | 2024-12-11 | DI.MAMMO_ITS ---
Exam(s) MG MAMMO SCREEN CALL BACK UNI US BREAST RT COMPLETE EXAM: MG MAMMO SCREEN CALL BACK UNI-RIGHT AND COMPLETE RIGHT BREAST ULTRASOUND CLINICAL HISTORY: F/U MAMMO, RT ASYMMETRIC DENSITY,? NODULE POSTERIORLY. TECHNIQUE: Unilateral RIGHT BREAST spot mammographic images obtained with 3D tomosynthesisand utiliz ing computer aided detection (CAD). . Complete RIGHT breast Ultrasound was also performed, including all 4 quadrants, the retroareolar jewell on, and the ipsilateral axilla. COMPARISON: Prior mammograms were reviewed. This additional imaging was performed due to findings described on the recent screening mammogram of 12/09/2024. FINDINGS: DIAGNOSTIC MAMMOGRAM: Additional mammographic views performed todaydoes not dissipate the finding described on the recent s creening mammogram. COMPLETE RIGHT BREAST ULTRASOUND: Ultrasound performed today reveals a solitary finding which is at the 8 o'clock position corresponds to finding on the recent mammogram. This has the appearance of a 4 mm septated microcyst.. No other focal findings in all 4 quadrants. Scanning of the ipsilateral axilla reveals no significant adenopathy. IMPRESSION: 1. Benign-appearing findings at 8 o'clock position of the right breast as described above Appropriate follow-up as described by myself the patient today is repeat right breast mammogram in 6 months.. The patient was informed of these findings and recommendations by myself prior to leaving the departm ent today. BI-RADS Category 3 - 6 month - Probably Benign Finding: Recommend follow-up mammography in 6 months Breast Density - Category C - Heterogeneously dense Breast density Category C or D implies that the patient has dense breast tissue. Dense breast tissue can make it harder to find cancer on a mammogram. Dense breast tissue is also associated with an incr eased risk of breast cancer. This information about the result of the mammogram report was provided to the patient to raise their awareness. Use this report when you speak with the patient about their risks for breast cancer, which includes their family history. At that time, you may recommend additional screening tests (Ultrasoun d or MRI) as these tests may add significant information. A negative radiographic report should not delay biopsy if a dominant or clinically suspicious mass is present. Up to ten percent of cancers are not identified on mammography. A negative report may reinforce clinical impression. Adenosis and dense breasts may obscure an underlying neoplasm. False positive reports average 6 to 10%. Patient will receive a letter notifying them of these results.
== END 2024-12-11 02:59 ==
LOC: DI 02:39
PROVIDERS: PCP Nurse Practitioner Family; Visit Provider Nurse Practitioner Family
DX: R92.8 Other abnormal and inconclusive findings on diagnostic imaging of breast (principal); Z12.31 Encounter for screening mammogram for malignant neoplasm of breast
CPT/HCPCS: 76642; 77063; 77067

== ENCOUNTER 2025-07-02 14:53 | Outpatient (CLI) | payer MEDICARE, OTHER, SELFPAY ==
--- NOTE | 2025-07-02 14:10 | DI.MAMMO_ITS ---
Exam(s) MG MAMMO DIAGNOSTIC UNI US BREAST RT COMPLETE EXAM: MG MAMMO DIAGNOSTIC UNI and U/S breast RT complete CLINICAL HISTORY: 6 month follow up Z09 ABNL MAMMO RT R92.8. TECHNIQUE: Craniocaudal and mediolateral oblique Full Field Digital Mammography views of the right breast with Computer Aided Diagnosis followed by Tomosynthesis and complete right breast ultrasound. All 4 quadrants of the right breast, the right axilla and right retroareolar region were evaluated on this examination. COMPARISON: Comparison is made with prior examinations. FINDINGS: Mammography/Tomosynthesis: Masses/Architectural Distortion: There is an area of asymmetric breast tissue in the posterior superior right breast on the MLO view. It is slightly more prominent compared to the prior examinations. It is less prominent on the additional views. There are no areas of architectural distortion. Microcalcifictions: No suspicious pleomorphic-type are seen. Skin Thickening/Nipple Retraction: None. Complete right breast US: Echotexture: Normal appearance of the glandular tissue. Shadowing: No suspicious foci. Cyst: The small septated cyst at the 7 o'clock position of the right breast is again seen and is unchanged. No new cystic or solid masses are seen in the right breast. Solid lesions: None seen. Ductal dilation: None. IMPRESSION: 1. No definite evidence for malignancy is seen at this time. 2. A six-month follow-up mammogram and ultrasound are requested for re- evaluation. At that time, the patient's screening left mammogram should be obtained. 3. The findings were discussed with the patient on the date of the examination. BI-RADS Category 3 - 6 month - Probably Benign Finding: Recommend follow-up imaging in 6 months Breast Density - Category B - There are scattered areas of fibroglandular density. Breast density Category C or D implies that the patient has dense breast tissue. Dense breast tissue can make it harder to find cancer on a mammogram. Dense breast tissue is also associated with an increased risk of breast cancer. This information about the result of the mammogram report was provided to the patient to raise their awareness. Use this report when you speak with the patient about their risks for breast cancer, which includes their family history. At that time, you may recommend additional screening tests (Ultrasound or MRI) as these tests may add significant information. A negative radiographic report should not delay biopsy if a dominant or clinically suspicious mass is present. Up to ten percent of cancers are not identified on mammography. A negative report may reinforce clinical impression. Adenosis and dense breasts may obscure an underlying neoplasm. False positive reports average 6 to 10%. Patient will receive a letter notifying them of these results.
== END 2025-07-02 15:13 ==
PROVIDERS: PCP Nurse Practitioner Family; Visit Provider Nurse Practitioner Family
DX: Z09 Encounter for follow-up examination after completed treatment for conditions other than malignant neoplasm (principal); R92.8 Other abnormal and inconclusive findings on diagnostic imaging of breast
CPT/HCPCS: 76642; 77061; 77065; G0279

== ENCOUNTER 2025-08-28 07:49 | Emergency (ER) | payer MEDICARE, SELFPAY ==
[2025-08-28 07:50] VITALS: BP 180/61; PULSE 80; RESP 20; TEMP 36; O2SAT 99
[2025-08-28 08:00] VITALS: PULSE 79; O2SAT 98
[2025-08-28 08:01] VITALS: BP 147/61; PULSE 76; O2SAT 99
[2025-08-28 08:10] VITALS: PULSE 84; O2SAT 98
--- NOTE | 2025-08-28 08:20 | W.ED.GENAD ---
Discharge Plan Disposition Patient Disposition: Home Condition: Improving Discharge Details Clinical Impression: Back pain, Muscle spasm, Neck pain Primary Care Provider: Saritha Michaels ED Provider: Anjana De Anda Home Meds and New Rx's Prescriptions: New methocarbamol 500 mg tablet 500 mg PO TID PRN (Reason: muscle spasm) Qty: 14 0RF Continued Centrum Silver Women 8 mg iron-400 mcg-300 mcg tablet 1 tab PO DAILY lysine 500 MG tablet 1 tab PO DAILY aspirin 81 MG tablet,chewable 81 mg PO DAILY Patient Comments: on hold due to prednisone losartan-hydrochlorothiazide [Hyzaar] 50-12.5 mg tablet 1 tab PO DAILY Qty: 90 3RF acetaminophen 500 mg capsule 400 mg PO ONCE PRN Discharge Instructions Instructions: Neck Pain Exercises, Low Back Pain ED Additional Instructions: As we discussed, your exam and history are most consistent with muscular cause of your back pain and neck pain. I believe that you are having some spasms which are causing pressure on the nerves that you have experienced historically. Please continue with Tylenol and ibuprofen. You may take these together. Please take this as directed on the packaging. You may also use Lidoderm patches, the ones you currently have on can be there for the next 24 hours and then should be removed or replaced. These are available [id number]. You may also use the muscle relaxer prescribed, methocarbamol, 3 times a day. Please not drink any alcohol or drive while using this medication. This medication can be an as needed medication. I have also reached out to your primary care provider and discussed possibility of needing to have further imaging should your pain not resolved. Attached a referral to physical therapy. As we discussed, I do encourage that you get up and try to move more frequently. Heat can also help to relax your muscles as can massage. Is unusual that pain is worse in the morning so please go slowly to prevent falls. If you develop any problems with bowel or bladder, sensation change, weakness or other new/worsening symptom please seek care urgently once again. Stand Alone Forms: Physical Therapy Referral Referrals: Saritha Michaels, ANJELICA [Primary Care Provider, Medicine] Discharge Data Discharge Date/Time-TO BE ENTERED AT DEPARTURE: 08/28/25 09:54 HPI General Date/Time Provider Initiated Documentation: 08/28/25 07:56. Limitations to Documentation: no limitations. Information obtained by: patient, family, RN notes reviewed and old records reviewed. History of Present Illness 79 year old F presents to the emergency department with the chief complaint of back pain, described as severe and similar to prior episodes, Quality is described as aching and sharp, Patient distal. Patient started experiencing this week(s) (3) and it has been constant. Immobilization improves symptom(s), Movement worsens symptoms . Patient notes no other symptoms.. Patient did receive the following treatments prior to arrival, other (APAP) Related Data Home Medications Medication Instructions Recorded Confirmed lysine 500 mg tablet 1 tab PO DAILY 01/09/13 08/28/25 aspirin 81 mg chewable tablet 81 mg PO DAILY 07/31/17 08/28/25 [id number] 8 mg-folic 400 1 tab PO DAILY 08/25/22 08/28/25 mcg-K 50 mcg-lutein 300 mcg tablet (Centrum Silver Women) losartan 50 mg-hydrochlorothiazide 1 tab PO DAILY #90 tabs 06/13/24 08/28/25 12.5 mg tablet (Hyzaar) acetaminophen 500 mg capsule 400 mg PO ONCE PRN 08/28/25 08/28/25 methocarbamol 500 mg tablet 500 mg PO TID PRN muscle spasm #14 08/28/25 tabs Previous Rx's Medication Instructions Recorded losartan 50 mg-hydrochlorothiazide 1 tab PO DAILY #90 tabs 06/13/24 12.5 mg tablet (Hyzaar) methocarbamol 500 mg tablet 500 mg PO TID PRN muscle spasm #14 08/28/25 tabs Allergies Allergy/AdvReac Type Severity Reaction Status Date / Time doxycycline Allergy Unknown unknown Verified 08/28/25 07:58 oxycodone Allergy Unknown ITCHY RASH Verified 08/28/25 07:58 tetracycline Allergy Unknown unknown Verified 08/28/25 07:58 lisinopril AdvReac Mild cough Verified 08/28/25 07:58 General Stated Complaint: Orthopedic CHARLEE: 3 Review of Systems Constitutional Constitutional: Reports as per HPI, Denies chills, Denies fever(s) and Denies frequent falls Eyes Eyes: Denies change in vision Cardiovascular Cardiovascular: Denies chest pain, Denies dyspnea and Denies dyspnea on exertion Respiratory Respiratory: Denies cough, Denies dyspnea and Denies dyspnea on exertion Gastrointestinal Gastrointestinal: Denies abdominal pain, Denies change in bowel habits and Denies fecal incontinence Genitourinary Genitourinary: Reports as per HPI, Denies urinary incontinence and Denies urinary hesitancy Musculoskeletal Musculoskeletal: Reports as per HPI, Reports back pain, Denies muscle weakness, Denies numbness, Denies radiating pain into limb, Reports stiffness and Denies tingling Integumentary/Breasts Skin/Breast: Reports as per HPI and Denies rash Neurologic Neurologic: Reports as per HPI, Denies frequent falls, Denies localized weakness, Denies numbness, Denies radicular pain, Denies sensory deficit, Denies tingling and Denies paresthesias Exam Const General: cooperative, healthy appearing, uncomfortable, no acute distress, well developed and well groomed Nutritional Appearance: average body habitus and well nourished Orientation: alert and awake Neck Neck: normal visual inspection and no lymphadenopathy Resp Effort & Inspection: normal respiratory effort and able to speak in complete sentences Cardio Rate: regular rate Rhythm: regular rhythm Back/Spine/Pelvis Cervical Spine: normal cervical lordosis, No cervical ROM normal, cervical muscular tenderness, cervical spasm (left lteral along the trap), No cervical spinal tenderness and No step off deformity Thoracic/Lumbar Spine: No thoraco-lumbar ROM normal, No mass, pain with thoraco-lumbar ROM, No paraspinal tenderness, thoraco-lumbar ROM limited, scoliosis, No thoracic spinal tenderness and No lumbar spinal tenderness Pelvis: no pain with anterior-posterior compression and no pain with lateral compression Sacroiliac joints: on the right tender to palpation Back/spine/pelvis image:  1. 2. Area of muscle spasm and tenderness. pain along lumbar spine more on fitz right side. Pin in he neck along he left side tracking down to the left shoulder. Again, patient does have palpable spasm in this area. She has 2+ distal pulses. Limited range of motion secondary to stiffness. No midline tenderness and no step-off. No skin changes over these areas. No saddle paresthesias. Skin General skin exam: no rashes or lesions noted Neuro General: patient alert and patient awake Cognition: normal cognition Speech: speech normal Motor: muscle tone normal throughout, strength 5/5 throughout, no movement abnormalities noted and no fasciculations Sensory Exam: no sensory deficits noted (no saddle paresthesias) Extrem General: normal to inspection, full ROM, capillary refill normal, no joint enlargement, no pedal edema and no calf tenderness Course Vital Signs Vital signs: Vital Signs Temperature 36.0 C L 08/28/25 07:50 Pulse 80 08/28/25 07:50 Respiratory Rate 20 08/28/25 07:50 Blood Pressure 180/61 H 08/28/25 07:50 Pulse Oximetry 99 08/28/25 07:50 Temperature 36.0 C L 08/28/25 07:50 Temperature Source Tympanic 08/28/25 07:50 Pulse 80 08/28/25 07:50 Respiratory Rate 20 08/28/25 07:50 Blood Pressure 180/61 H 08/28/25 07:50 Pulse Oximetry 99 08/28/25 07:50 Oxygen Delivery Method Room Air 08/28/25 07:50 Oxygen Flow Rate 0 08/28/25 07:50 Pain Level 8 08/28/25 07:50 Medical Decision Making Patient is a pleasant 79-year-old female with past medical history significant for spinal decompression in 2012, presenting chief complaint of lumbar back pain and cervicalgia for 3 weeks. Patient was seen in urgent care and was treated with Toradol which she states gave her some good relief, acetaminophen and given 4 days of prednisone burst. She reports that she went to abdominal prednisone she did have some slight improvement but that overall the pain is persistent as soon as she stopped the pain came back. She denies any bladder or bowel changes. Denies any sensory changes. Overall movement does cause increased discomfort, she is not noting any true weakness in the lower extremities. She has not any fevers or chills. No recent trauma or injury. has been very supportive and is been helping to care carry her to be able to get from place to place secondary to the pain. This morning, patient took 3 and 25 mg of acetaminophen. On exam, patient appears nontoxic. Resting comfortably no acute distress. She does appear slightly uncomfortable and is preferring to be very Still. Patient has no midline tenderness along the CT or L-spine. No abdominal tenderness. Lungs are clear, normal cardiac exam. Pain in the neck is more along the left lateral side along the trapezius tracking down towards the left shoulder. She does have palpable spasm in this area. Patient also has palpable spasm at the lumbar spine more on the right side over the right SI joint. She does have tenderness in bilaterally over the lumbar spine but it is more so on the right and again, no midline tenderness or step-off. No skin changes. Patient and family are questioning the need for possible imaging. As the patient's not had any trauma and pain seems to be much more muscular based than over the actual spine, I do not believe that imaging is required at this point. However, I did reach out to patient's primary care so that they are aware that she has been having this pain for the past 3 weeks that has not responded to more conservative management. However, as the patient's seems to be having significant spasm I did discuss muscle relaxant with the patient and her significant other and they are in agreement this plan. She has been sensitive medications in the past we will give small dose. Plan to give 500 mg of methocarbamol, Lidoderm patch over tender areas and ibuprofen. I did encourage gentle movement. She has not had any saddle paresthesias, change in bowel or bladder habits, focal deficits to suggest cauda equina. No risk factors to suggest infectious etiology at this time Patient ambulating and feeling improved after ibuprofen, lidoderm patch and 500mg Methocarbamol. Feels ready for d/c to home. I feel this plan is appropriate. Again primary care is aware of this. I did discuss continuing with the muscle relaxers although she is aware that this can cause sedation and will not drive or drink alcohol while using this medication. Encourage hydration, encouraged gentle stretching. Will refer back to physical therapy, she has gone before good success. Encourage close follow-up with primary care. Return precautions were discussed. All of her questions and concerns were addressed and she is in agreement this plan. Dictation completed using fypio dictation software. Please excuse any errors or office 365 consultant anomalies that may remain. 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 Performed by Dr. Jim Mckay with the [facility] in [place] History of removal of implants of both breasts (08/31/17) And capsulotomy History of augmentation of both breasts (1986) S/P total abdominal hysterectomy and bilateral salpingo-oophorectomy (~1997) Family History Mother , at 90 Hypertension Stroke Hyperlipidemia Alcohol abuse Father No problems noted. Sister Depression Hypertension Osteoporosis Daughter No problems noted. Son No problems noted. Maternal Grandfather Brain cancer Maternal Grandmother Hypertension Stroke Paternal Grandfather No problems noted. Paternal Grandmother No problems noted. Social History Smoking/Tobacco Use Status: Never Second Hand Exposure: Yes Smoking risk assessment performed?: Yes Alcohol Intake: never Drug use: Never Substance use type: does not use Adopted: No Caregiver/Support person: No Foster care: No Household members: spouse Housing: house Number of Children: 2 number of grandchildren: 5 Communication Needs: None Education Level: high school Do you need help understanding health information?: Never current occupation: Retired Pets and animals: No Sexually active: No Do you think of yourself as: straight/heterosexual Current gender identity: female What is your relationship status?: How often do you talk on the phone with friends or family?: three or more times per week How often do you get together with friends or relatives?: three or more times per week How often do you attend protestant or episcopal services?: 4 or more times per year Do you belong to any clubs or organized social groups?: no Panel score (0-1 are the most socially isolated patients): 3 What type of physical activity do you participate in: walking Duration: 30-45 minutes/day Frequency: 3-4 times per week Melonie/Nondenominational: Jew Special melonie needs: No Seatbelt use: always Helmet use: No Drive intox or ride w/intox tractor driver teamster: No Working smoke detector in home: Yes Carbon monox detector in home: Yes Do you feel safe at home: Yes Do you feel safe in your relationship?: Yes Would you like helpful sources: No Female Reproductive History Menstrual Menopause type: surgical History History 2 Para Hx # Term Pregnancies 2 Multiple births Hx # Pregnancies Ectopic pregnancies AB induced Hx Number of Living Children 2 AB spontaneous
[2025-08-28] MEDS: Ibuprofen 600 MG TAB PO (08:28)
[2025-08-28] MEDS: Lidocaine 5% Patch 2 PATCH TP (08:28)
[2025-08-28] MEDS: Methocarbamol 500 MG TAB (08:29)
[2025-08-28 09:38] VITALS: BP 171/69; PULSE 68; RESP 18; O2SAT 98
== END 2025-08-28 09:54 | disposition home or self-care (01) ==
PROVIDERS: Emergency Provider Physician Assistant; PCP Nurse Practitioner Family
DX: M54.2 Cervicalgia (principal); M54.9 Dorsalgia, unspecified; M62.838 Other muscle spasm; I10 Essential (primary) hypertension
CPT/HCPCS: 99284; 99283

== ENCOUNTER → 2025-09-04 02:24 | Outpatient (CLI) | payer MEDICARE, SELFPAY ==
--- NOTE | 2025-09-04 06:45 | DI.RAD_ITS ---
Exam(s) XR CERVICAL SPINE COMP 4-5V EXAM: XR CERVICAL SPINE COMP 4-5V CLINICAL HISTORY: neck pain,m54.2. TECHNIQUE: 2D digital imaging was performed. Five images were obtained. AP, odontoid, lateral and bilateral oblique images were obtained. COMPARISON: No exams were available for comparison FINDINGS: The odontoid is intact. The lateral masses are well aligned. There is normal alignment of the cervical spine. There is disc space narrowing at C5-C6. Small anterior osteophytes are seen at C5-C6 and C6-C7. There are degenerative changes of the facets at several levels in the cervical spine. No acute fracture or subluxation is present. There is mild neural foraminal narrowing bilaterally at C4-5. the cervical thoracic junction is well maintained. The prevertebral soft tissues are unremarkable. Lung apices are clear. IMPRESSION: 1. Mild degenerative changes seen in the cervical spine. 2. There is no acute fracture or subluxation. DATA REPOSITORY: RADIATION DOSE DELIVERED:
--- NOTE | 2025-09-04 06:45 | DI.RAD_ITS ---
Exam(s) XR LUMBAR SPINE COMPLETE EXAM: XR LUMBAR SPINE COMPLETE CLINICAL HISTORY: back pain,m54.9. TECHNIQUE: 2D digital imaging was performed of the lumbar spine. Five images were obtained. AP, lateral, right oblique, left oblique and L5-S1 spot views were obtained. COMPARISON: CR LUMBAR SPINE COMPLETE from 01/10/2013 FINDINGS: BONES: No fracture or destructive lesion. Vertebral bodies are unremarkable. There are degenerative changes of the facets at L4-5 and L5-S1. The bones are osteopenic. DISKS: Intervertebral disc spaces are maintained. ALIGNMENT: There is a marked right convex lumbar scoliosis centered at L2. No spondylolysis or spondylolisthesis. SOFT TISSUE: Atherosclerotic calcification is present. IMPRESSION: 1. Marked dextroscoliosis. 2. Moderate degenerative changes in the lumbar spine. 3. Osteopenia. DATA REPOSITORY: RADIATION DOSE DELIVERED:
== END ==
PROVIDERS: PCP Nurse Practitioner Family; Visit Provider Nurse Practitioner Family
DX: M54.2 Cervicalgia (principal); M54.9 Dorsalgia, unspecified; M41.56 Other secondary scoliosis, lumbar region; M51.360 Other intervertebral disc degeneration, lumbar region with discogenic back pain only; M85.88 Other specified disorders of bone density and structure, other site
CPT/HCPCS: 72050; 72110

== ENCOUNTER 2025-09-11 10:13 | Outpatient (CLI) | payer MEDICARE, SELFPAY ==
[2025-09-11 13:59] LABS: Abs Immature Grans 0.04 10^3/uL (0.0-0.06); HCT 33.1 % (36.0-46.0); HGB 10.7 g/dL (11.2-15.7); Immature Grans % 0.4 %; MCH 29.8 pg (27.0-33.0); MCHC 32.3 % (32.0-36.0); MCV 92 fL (80-95); MPV 11.4 fL (8.0-11.0); Platelet Count 419 10^3/uL (130-400); RBC 3.59 10^6/uL (3.93-5.22); RDW 12.3 % (11.7-14.6); RDW-SD 41.6 fL; WBC 10.56 10^3/uL (4.4-10.8)
[2025-09-11 14:06] LABS: ALT 9 U/L (10-49); AST 19 U/L (<34); Albumin 4.3 g/dL (3.4-5.0); Alkaline Phosphatase 114 U/L (46-116); Anion Gap 9.1 mmol/L (3-11); BUN 18 mg/dL (9-23); Bilirubin, Total 0.30 mg/dL (0.2-1.2); CO2 26.9 mmol/L (20.0-31.0); Calcium 9.9 mg/dL (8.3-10.6); Chloride 105 mmol/L (98-107); Glucose 95 mg/dL (74-106); Potassium 3.8 mmol/L (3.5-5.1); Sodium 141 mmol/L (136-145); Total Protein 7.2 g/dL (5.7-8.2)
[2025-09-11 14:08] LABS: TSH (W/Ref FT4) 3.99 uIU/mL (0.55-4.78)
[2025-09-11 15:39] LABS: Hemoglobin A1C 5.5 % (<5.7)
[2025-09-12 09:59] LABS: Ferritin 102 ng/mL (7-271); Vitamin B12 870 pg/mL (211-911)
[2025-09-12 10:00] LABS: Iron 29 ug/dL (50-170)
== END 2025-09-11 10:14 | disposition home or self-care (01) ==
LOC: LOS 10:13
PROVIDERS: PCP Nurse Practitioner Family; Visit Provider Nurse Practitioner Family
DX: R61 Generalized hyperhidrosis (principal); R73.01 Impaired fasting glucose; D64.9 Anemia, unspecified
CPT/HCPCS: 36415; 80053; 82607; 82728; 83036; 83540; 84443; 85025

== ENCOUNTER 2025-09-11 16:49 | Outpatient (REF) | payer MEDICARE, SELFPAY ==
[2025-09-11 17:55] LABS: Glucose Negative (Negative)
== END 2025-09-11 16:50 | disposition home or self-care (01) ==
LOC: LBN 16:49
PROVIDERS: PCP Nurse Practitioner Family; Visit Provider Nurse Practitioner Family
DX: R61 Generalized hyperhidrosis (principal)
CPT/HCPCS: 81003

== ENCOUNTER → 2025-09-19 02:44 | Outpatient (CLI) | payer MEDICARE, SELFPAY ==
--- NOTE | 2025-09-19 07:15 | DI.MRI_ITS ---
Exam(s) MR LUMBAR SPINE WO EXAM: MR LUMBAR SPINE WO CLINICAL HISTORY: lumbar radiculopathy,M54.16. TECHNIQUE: Multiplanar multisequence MRI of the Lumbar spine was performed. COMPARISON: CR XR LUMBAR SPINE COMPLETE from 09/04/2025 FINDINGS: Bones: The last intervertebral disc space is designated the L5/S1 level for the numbering purpose of this examination. The vertebral body heights are well maintained. Alignment: Unremarkable prominent dextro rotoscoliosis with the apex at L2. The marrow signal characteristics are unremarkable. Cord: The conus tip ends at the T12 L1 level. It is of normal size and signal intensity. T12-L1: Mild loss of disc height. Small endplate osteophytes and mild disc bulging. No focal disc herniation is present. No central spinal canal stenosis.No neural foraminal stenosis. L1-2: Loss of disc height eccentric toward the left. Mild disc bulging. No focal disc herniation is present. No central spinal canal stenosis.Mild left neural foraminal stenosis. L2-3:Loss of disc height eccentric toward the left. Small endplate osteophytes and mild disc bulging. No focal disc herniation is present. No central spinal canal stenosis.No neural foraminal stenosis. L3-4: Minimal disc bulging. No focal disc herniation is present. No central spinal canal stenosis.No neural foraminal stenosis. L4-5: Loss of disc height eccentric toward the right where there are endplate osteophytes. There is mild disc bulging. There are mild facet degenerative changes. There is moderate to severe right neural foraminal narrowing. No focal disc herniation is present. No central spinal canal stenosis.No left neural foraminal stenosis. L5-S1: Disc height is maintained. Mild posterior disc bulging. Mild facet degenerative changes.No focal disc herniation is present. No central spinal canal stenosis.No neural foraminal stenosis. The visualized SI joints and sacrum are unremarkable. Soft tissues: The paraspinal soft tissues are unremarkable. Sigmoid diverticulosis is noted. IMPRESSION: Degenerative disc changes and scoliosis. Moderate to severe right neural foraminal narrowing at L4-5. No evidence of significant spinal stenosis or focal disc herniation. DATA REPOSITORY:
== END ==
LOC: DI 02:44
PROVIDERS: PCP Nurse Practitioner Family; Visit Provider Nurse Practitioner Family
DX: M54.16 Radiculopathy, lumbar region (principal); M48.062 Spinal stenosis, lumbar region with neurogenic claudication
CPT/HCPCS: 72148